=== PATIENT | female | born 2000 | race Two or more races ===

== ENCOUNTER 2021-02-24 15:56 | Emergency (ER) | payer OTHER ==
--- NOTE | 2021-02-24 16:46 | ED Physician Documentation ---
History of Present Illness - Stated complaint Stated Complaint: LT EAR PX - Chief complaint Chief Complaint: Heent - Additonal information Additional information: 20-year-old female presents emergency department for evaluation of headache left ear pain and dizziness that she noticed this morning upon waking. She reports that when she turns her head to sharply she feels the room spinning. This last for just a few seconds but it makes her quite nauseated. She denies tinnitus loss of hearing any recent cough cold or congestion. no fevers. She does use Q- tips when she cleans her ears. No history of similar. Denies possibility of . Review of Systems Constitutional: denies: Fever, Chills Eyes: denies: Loss of vision Ears: reports: Ear pain. denies: Loss of hearing, Drainage/discharge, Tinnitus/ringing, Foreign body Nose: reports: Reviewed and negative Throat: reports: Reviewed and negative Cardiac: reports: Reviewed and negative Respiratory: reports: Reviewed and negative GI: reports: Nausea. denies: Abdominal Pain, Constipation, Diarrhea : reports: Reviewed and negative Skin: reports: Reviewed and negative Musculoskeletal: reports: Reviewed and negative Neurologic: reports: Other (vertigo). 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 : None HEENT: None Psych: Anxiety Musculoskeletal: None Derm: None - Past Surgical History Past Surgical History: Yes HEENT: Other - Present Medications Home Medications: Ambulatory Orders Medication Instructions Recorded Confirmed Meclizine HCl [Antivert] 1 tablet PO Q6H PRN #30 tab 02/24/21 diphenhydrAMINE [Benadryl] 25 mg PO HS #5 02/24/21 - Allergies Allergies/Adverse Reactions: Allergies Allergy/AdvReac Type Severity Reaction Status Date / Time No Known Drug Allergies Allergy Verified 02/24/21 15:59 - Social History Does the pt smoke?: No Smoking Status: Never smoker Does the pt drink ETOH?: No Does the pt have substance abuse?: No - Immunizations Immunizations are current?: Yes PD ED PE EXPANDED - General General: Alert, No acute distress, Well developed/nourished - HEENT HEENT: Atraumatic, PERRL, EOMI, Ears normal, Moist mucous membranes, Pharynx normal. No: Head injury, Rhinorrhea - Eyes Eyes: PERRL, Normal accommodation - Neck Neck: Supple w/out meningeal sx. No: Adenopathy - Cardiac Cardiac: Regular Rate, Regular Rhythm, Radial strong equal, Pedal strong equal, Cap refill < 2 sec. No: Murmur Present - Respiratory Respiratory: Clear to ausultation anna. No: Distress, Labored - Neuro Neuro: Alert and Oriented X 3, CNII-XII intact, Cerebellar nl, Normal gait, Normal finger nose, Other (+ nader-iglesias pike on left side) - GCS Eye Opening: Spontaneous Motor: Obeys Commands Verbal: Oriented Total: 15 Results - Vitals Vitals: Vital Signs - 24 hr 02/24/21 15:59 Temperature 36.7 C Heart Rate 78 Respiratory 16 Rate Blood Pressure 114/80 O2 Saturation 98 Oxygen O2 Source Room air PD MEDICAL DECISION MAKING - ED course Complexity details: reviewed results, re-evaluated patient, d/w patient ED course: 20-year-old female presents emergency department for evaluation of positional dizziness this a.m. as well as ear pain. Exam is consistent with a peripheral etiology. Given the ear pain with swallow I suspect she likely has mild eustachian tube dysfunction. Pt given zofran here in the ED. Will recommend benadryl to help clear the Eustachian tubes and limited meclizine. Emergent return precautions discussed Departure - Departure Disposition: 01 Home, Self Care Clinical Impression: Peripheral vertigo involving left ear Condition: Stable Record reviewed to determine appropriate education?: Yes Prescriptions: Meclizine HCl [Antivert] 1 tablet PO Q6H PRN #30 tab PRN Reason: Vertigo diphenhydrAMINE [Benadryl] 25 mg PO HS #5 Comments: Ann as we discussed I suspect that you have a plugged eustachian tube is contributing to your vertigo on the left side. The meclizine can help with motion sickness during the day and the Benadryl taken at night before bed can help unplug the eustachian tubes Your ears do not have any signs of infection. At any point you develop fevers, have uncontrolled vomiting, or feel that your symptoms are not improving then please return immediately to the ER
[2021-02-24] MEDS ORDERED: ONDANSETRON ODT 4 MG TABLET TL STA (16:50)
[2021-02-24 16:59] VITALS: BP 125/68
== END 2021-02-24 17:00 | disposition home or self-care (01) ==
LOC: ED 15:56
DX: H81.312 Aural vertigo, left ear (principal)
CPT/HCPCS: 99282; 99284; Q0162

== ENCOUNTER 2021-07-12 18:37 | Emergency (ER) | payer OTHER ==
[2021-07-12 19:21] LABS: BASOPHILS # (AUTO) 0.1 10^3/uL (0.0-0.1); BASOPHILS % (AUTO) 0.4 %; EOSINOPHILS # (AUTO) 0.1 10^3/uL (0.0-0.7); HCT - HEMATOCRIT 38.2 % (37.0-47.0); HGB - HEMOGLOBIN 12.7 g/dL (12.0-16.0); LYMPHOCYTES # (AUTO) 3.6 10^3/uL (1.5-3.5); LYMPHOCYTES % (AUTO) 29.4 %; MEAN CORPUSCULAR HGB CONC 33.2 g/dL (32.0-36.0); MEAN CORPUSCULAR VOLUME 84.3 fL (81.0-99.0); MEAN PLATELET VOLUME 9.5 fL (7.9-10.8); MONOCYTES # (AUTO) 1.1 10^3/uL (0.0-1.0); MONOCYTES % (AUTO) 8.8 %; NEUTROPHILS # (AUTO) 7.3 10^3/uL (1.5-6.6); NEUTROPHILS % (AUTO) 60.2 %; PLT - PLATELET COUNT 290 10^3/uL (130-450); RED BLOOD COUNT 4.53 10^6/uL (4.20-5.40); RED CELL DISTRIBUTION WIDTH 12.4 % (12.0-15.0); WHITE BLOOD COUNT 12.2 x10^3/uL (4.8-10.8)
[2021-07-12 19:35] LABS: ALBUMIN 4.5 g/dL (3.2-5.5); ALBUMIN/GLOBULIN RATIO 1.6 (1.0-2.2); BILIRUBIN,TOTAL 0.8 mg/dL (0.2-1.0); CALCIUM 9.3 mg/dL (8.5-10.3); CREATININE 0.8 mg/dL (0.4-1.0); POTASSIUM 3.8 mmol/L (3.5-5.0); TOTAL PROTEIN 7.4 g/dL (6.7-8.2)
[2021-07-12 22:13] LABS: BILIRUBIN,URINE NEGATIVE (NEGATIVE); GLUCOSE, URINE (UA) NEGATIVE (NEGATIVE); KETONES,URINE (UA) NEGATIVE (NEGATIVE); LEUKOCYTE ESTERASE, URINE NEGATIVE (NEGATIVE); NITRITE,URINE NEGATIVE (NEGATIVE); OCCULT BLOOD,URINE NEGATIVE (NEGATIVE); PROTEIN,URINE NEGATIVE (NEGATIVE); UROBILINOGEN,URINE 0.2 (NORMAL) E.U./dL (NORMAL)
[2021-07-12 22:18] LABS: CLARITY,URINE CLEAR (CLEAR); HCG UR QUAL NEGATIVE
--- NOTE | 2021-07-12 22:33 | ED Physician Documentation ---
PD HPI FEMALE - Stated complaint Stated Complaint: FEMALE - Chief complaint Chief Complaint: Abd Pain - History obtained from History obtained from: Patient - History of Present Illness Timing - onset: How many weeks ago (2) Timing - details: Gradual onset, Waxing and waning Associated symptoms: Abdominal pain, Pelvic pain. No: Fever, Vaginal bleeding, Vaginal discharge, Dysuria, Urinary frequency Contributing factors: No: Recently seen: Not recently seen - Additional information Additional information: patient c/o 1-2 weeks of suprapubic cramping pain as well as epigastric burning discomfort. Patient says she had nexplanon placed LUE October 2020 and it was removed March 2021, but that she hasn't had a period since October after the nexplanon was first placed. She c/o 1 week of bilateral breast tenderness. She has not been evaluated recently in outpatient setting Review of Systems Constitutional: denies: Fever, Chills, Sweats Cardiac: reports: Reviewed and negative Respiratory: reports: Reviewed and negative GI: reports: Abdominal Pain (suprapubic pain). 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 : None HEENT: None Psych: Anxiety Musculoskeletal: None Derm: None - Past Surgical History Past Surgical History: Yes HEENT: Other - Present Medications Home Medications: Ambulatory Orders Medication Instructions Recorded Confirmed Meclizine HCl [Antivert] 1 tablet PO Q6H PRN #30 tab 02/24/21 diphenhydrAMINE [Benadryl] 25 mg PO HS #5 02/24/21 - Allergies Allergies/Adverse Reactions: Allergies Allergy/AdvReac Type Severity Reaction Status Date / Time No Known Drug Allergies Allergy Verified 07/12/21 19:06 - Social History Does the pt smoke?: No Smoking Status: Never smoker Does the pt drink ETOH?: No Does the pt have substance abuse?: No - Immunizations Immunizations are current?: Yes PD ED PE NORMAL - Vitals Vital signs reviewed: Yes - General General: Alert and oriented X 3, No acute distress, Well developed/nourished - HEENT HEENT: Moist mucous membranes - Cardiac Cardiac: RRR, No murmur, No gallop, No rub - Respiratory Respiratory: No respiratory distress, Clear bilaterally - Abdomen Abdomen: Normal bowel sounds, Soft, Non distended, Other (mild TTP suprapubic and right anterior hemipelvis without rebound or guarding) - Back Back: No CVA TTP Results - Vitals Vitals: Vital Signs - 24 hr 07/12/21 07/12/21 07/12/21 19:02 21:15 23:04 Temperature 36.6 C 98.8 C H Heart Rate 68 75 81 Respiratory 15 16 18 Rate Blood Pressure 110/80 113/74 111/71 O2 Saturation 100 99 100 07/13/21 01:37 Temperature 37.1 C Heart Rate 81 Respiratory 18 Rate Blood Pressure 117/75 O2 Saturation 100 Oxygen O2 Source Room air - Labs Labs: Laboratory Tests 07/12/21 07/12/21 07/12/21 19:15 19:15 21:30 WBC 12.2 H RBC 4.53 Hgb 12.7 Hct 38.2 MCV 84.3 MCH 28.0 MCHC 33.2 RDW 12.4 Plt Count 290 MPV 9.5 Neut # (Auto) 7.3 H Lymph # (Auto) 3.6 H Waller # (Auto) 1.1 H Eos # (Auto) 0.1 Baso # (Auto) 0.1 Absolute Nucleated RBC 0.00 Nucleated RBC % 0.0 Sodium 135 Potassium 3.8 Chloride 103 Carbon Dioxide 25 Anion Gap 7.0 BUN 14 Creatinine 0.8 Estimated GFR (MDRD) 91 Glucose 86 Calcium 9.3 Total Bilirubin 0.8 AST 16 ALT 13 Alkaline Phosphatase 84 Total Protein 7.4 Albumin 4.5 Globulin 2.9 Albumin/Globulin Ratio 1.6 Lipase 31 Urine Color YELLOW Urine Clarity CLEAR Urine pH 6.0 Ur Specific Walland 1.010 Urine Protein NEGATIVE Urine Glucose (UA) NEGATIVE Urine Ketones NEGATIVE Urine Occult Blood NEGATIVE Urine Nitrite NEGATIVE Urine Bilirubin NEGATIVE Urine Urobilinogen 0.2 (NORMAL) Ur Leukocyte Esterase NEGATIVE Ur Microscopic Review NOT INDICATED Urine Culture Comments NOT INDICATED Urine HCG, Qual NEGATIVE - Rads (name of study) pelvic US Radiology: Prelim report reviewed, See rad report PD MEDICAL DECISION MAKING - ED course Complexity details: reviewed results, re-evaluated patient, considered differential, d/w patient ED course: blood tests and UA are normal (exception of minimal leukocytosis, WBC 12.0). Urine HCG negative. US shows "small cystic changes may reflect dystrophic changes or hyperplasia" of uterus and "right ovary meets criteria for polycystic ovaries", with "multiple peripheral subcentimeter follicles (greater than 12)". I discussed these results with patient and stressed the need for f/u with quality review specialist, further testing might be necessary at the discretion of the quality review specialist Departure - Departure Disposition: 01 Home, Self Care Clinical Impression: Polycystic ovary Condition: Good Instructions: Polycystic Ovary Syndrome Follow-Up: Dian Hastings MD [Provider Admit Priv/Credential] - Within 1 week Discharge Date/Time: 07/13/21 01:41
[2021-07-13 01:41] VITALS: BP 117/75
--- NOTE | 2021-07-13 10:06 | Ultrasound Report ---
PROCEDURE: Pelvic w/Transvag+Doppler Comp INDICATIONS: pelvic pain, predominantly right sided TECHNIQUE: Real-time scanning was performed of the pelvic organs, with image documentation. Additional endovagi nal scanning was necessary due to incomplete visualization of the adnexal and endometrial structures by transabdominal scanning. COMPARISON: None. FINDINGS: No pathologic free abdominal or pelvic fluid. Uterus: Uterus is normal in size at 7.4 x 4.1 x 2.7 cm. Dystrophic appearing cystic changes are not ed. The endometrium measures 8.5 mm in combined thickness. Ovaries: Right ovary measures 3.8 x 3.0 x 2.7 cm, volume 13.7 cc. Arterial venous flow are identifie d. Multiple follicles are noted greater than 12 in number. Left ovary measures 3.1 x 1.7 x 1.4 cm, vo lume 3.9 cc. Arterial venous flow are identified. IMPRESSION: 1. No evidence of torsion at time of exam. 2. Areas of cystic change are noted within the endometrium possibly dystrophic. 3. Multiple follicles within the right ovary. Polycystic ovary should be considered. The above findings are concordant with preliminary report. Reviewed by: Emily Rodriguez MD on 07/13/2021 10:05 AM PDT Approved by: Emily Rodriguez MD on 07/13/2021 10:05 AM PDT Station ID: [id number]
== END 2021-07-13 01:41 | disposition home or self-care (01) ==
LOC: ED 18:37
DX: E28.2 Polycystic ovarian syndrome (principal)
CPT/HCPCS: 36415; 80053; 81001; 81003; 81025; 83690; 85025; 87086; 93975; 99282; 99284

== ENCOUNTER 2022-04-20 09:25 | Emergency (ER) | payer OTHER ==
[2022-04-20 09:38] VITALS: BP 113/75
[2022-04-20] MEDS ORDERED: SULFAMETH/TRIMETH DS 800/160 MG TABLET PO STA (09:46)
--- NOTE | 2022-04-20 09:48 | ED Physician Documentation ---
History of Present Illness - Stated complaint Stated Complaint: NOSE SWELLING - Chief complaint Chief Complaint: Heent - History obtained from History obtained from: Patient (Previously healthy 21-year-old woman with about a 3-month-old piercing through the nasal septum presents with swelling and pain of the tip of the nose for the last day. No fevers. 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 : None HEENT: None Psych: Anxiety Musculoskeletal: None Derm: None - Past Surgical History Past Surgical History: Yes HEENT: Other - Present Medications Home Medications: Ambulatory Orders Medication Instructions Recorded Confirmed Meclizine HCl [Antivert] 1 tablet PO Q6H PRN #30 tab 02/24/21 diphenhydrAMINE [Benadryl] 25 mg PO HS #5 02/24/21 Sulfamethox/Trimeth 800/160 1 each PO BID #14 tablet 04/20/22 [Bactrim Ds 800/160] - Allergies Allergies/Adverse Reactions: Allergies Allergy/AdvReac Type Severity Reaction Status Date / Time No Known Drug Allergies Allergy Verified 04/20/22 09:37 - Social History Does the pt smoke?: No Smoking Status: Never smoker Does the pt drink ETOH?: No Does the pt have substance abuse?: No - Immunizations Immunizations are current?: Yes PD ED PE NORMAL - Vitals Vital signs reviewed: Yes - General General: Alert and oriented X 3, No acute distress - HEENT HEENT: Other (There is a piercing through the nasal septum with swelling on both sides of where the piercing enters in both nares. Upon removal there is free- flowing pus which was cultured.) - Neck Neck: Supple, no meningeal sign, No bony TTP - Neuro Neuro: Alert and oriented X 3, Normal speech - Psych Psych: Normal mood, Normal affect Results - Vitals Vitals: Vital Signs - 24 hr 04/20/22 09:33 Temperature 36.0 C L Heart Rate 82 Respiratory 16 Rate Blood Pressure 113/75 O2 Saturation 98 Oxygen O2 Source Room air PD MEDICAL DECISION MAKING - ED course ED course: 21-year-old woman with a nasal septal piercing with infection. She was counseled on wound care and started on Bactrim. A culture was obtained during exam. Departure - Departure Disposition: 01 Home, Self Care Clinical Impression: Nasal abscess Condition: Good Record reviewed to determine appropriate education?: Yes Instructions: ED Abscess IandD Prescriptions: Sulfamethox/Trimeth 800/160 [Bactrim Ds 800/160] 1 each PO BID #14 tablet Comments: I sent your prescription to [facility] in [place]. As discussed I would insert and remove the piercing for a few times for the first few days to keep the pus free-flowing. After that you can leave it in more permanently. Return for new or worsening symptoms. We are performing a wound culture, the results should be done in 48-72 hours. If antibiotic change is necessary we will call you. Return if worse in the meantime, especially if you develop increased pain, fevers, cannot keep down the medication. Otherwise follow-up with your physician in approximately 2-3 days.
== END 2022-04-20 09:53 | disposition home or self-care (01) ==
LOC: ED 09:25
DX: J34.0 Abscess, furuncle and carbuncle of nose (principal)
CPT/HCPCS: 87070; 87205; 99282; 99283; A9270